=== PATIENT | male | born 1980 | race African-American/Black ===

== ENCOUNTER 2019-10-12 10:48 | Emergency (ER) | payer SELFPAY ==
--- NOTE | 2019-10-12 11:53 | RAD ---
LEFT FOOT 3 VIEWS: Date: 10/12/2019 HISTORY: Left foot pain and swelling. FINDINGS/IMPRESSION: No fracture, subluxation, or bony destruction identified. POS: [facility]
[2019-10-12] MEDS ORDERED: Cyclobenzaprine 10 MG TAB ONE (12:40)
[2019-10-12] MEDS ORDERED: Naproxen 500 MG TAB ONE (12:40)
== END 2019-10-12 12:50 | disposition home or self-care (01) ==
LOC: ERS 10:48
DX: S93.602A Unspecified sprain of left foot, initial encounter (principal); F17.210 Nicotine dependence, cigarettes, uncomplicated; X50.1XXA Overexertion from prolonged static or awkward postures, initial encounter

== ENCOUNTER 2020-05-08 21:55 | Emergency (ER) | payer SELFPAY | END 2020-05-08 23:02 | disposition home or self-care (01) | LOC: ERS 21:55 | DX: B35.3 Tinea pedis (principal); F17.210 Nicotine dependence, cigarettes, uncomplicated | CPT/HCPCS: 99283 ==